=== PATIENT | female | born 1965 | race Caucasian/White ===

== ENCOUNTER 2017-10-07 10:55 | Outpatient (CLI) | payer BC | END 2017-10-07 10:56 | disposition home or self-care (01) | LOC: BICMAMMO 10:55 | PROVIDERS: ATTEND Family Medicine | DX: Z12.31 Encounter for screening mammogram for malignant neoplasm of breast (principal); Z80.3 Family history of malignant neoplasm of breast | CPT/HCPCS: 77063; 77067 ==

== ENCOUNTER 2017-11-04 16:05 | Outpatient (CLI) | payer BC | END 2017-11-04 16:06 | disposition home or self-care (01) | LOC: BICULT 16:05 | PROVIDERS: ATTEND Family Medicine | DX: N63.10 Unspecified lump in the right breast, unspecified quadrant (principal) ==

== ENCOUNTER 2019-02-02 14:04 | Outpatient (CLI) | payer BC ==
--- NOTE | 2019-02-02 14:21 | RAD ---
EXAM: 3 views of the left foot HISTORY: Foot pain COMPARISON: None FINDINGS: 3 views of the left foot shows no evidence of acute fracture or dislocation. No soft tissue swelling is seen. No degenerative changes are present. IMPRESSION: No evidence of acute osseous abnormality.
== END 2019-02-02 14:05 | disposition home or self-care (01) ==
LOC: BICRAD 14:04
PROVIDERS: ATTEND Physician Assistant
DX: M79.672 Pain in left foot (principal)
CPT/HCPCS: 36415; 80053; 80061; 82306; 84443; 85025

== ENCOUNTER 2019-02-19 13:09 | Outpatient (CLI) | payer BC | END 2019-02-19 13:10 | disposition home or self-care (01) | PROVIDERS: ATTEND Physician Assistant | DX: Z72.0 Tobacco use (principal); Z82.49 Family history of ischemic heart disease and other diseases of the circulatory system | CPT/HCPCS: 93017 ==

== ENCOUNTER 2019-02-19 15:01 | Outpatient (CLI) | payer BC ==
--- NOTE | 2019-02-19 16:00 | BD ---
BONE DENSITOMETRY: Date: 02/19/19 HISTORY: 53-year-old female for postmenopausal osteoporosis screening. FINDINGS: Lumbar Spine: BMD (g/cm2) L1 1.067 T-Score: 0.7 L2 1.013 T-Score: -0.1 L3 1.060 T-Score: -0.2 L4 1.002 T-Score: -0.5 Total 1.035 T-Score: -0.1 Left Femoral Neck: 0.639 T-Score: -1.9 Total Femur: 0.933 T-Score: -0.1 IMPRESSION: 1. Bone mineral density of the lumbar spine is within normal range. 2. Bone mineral density of the femoral neck indicates osteopenia. 10 YEAR FRACTURE RISK: Major osteoporotic fracture: 13% Hip fracture: 2.4% POS: [facility]NN[facility]
--- NOTE | 2019-02-19 16:40 | MMO ---
Bilateral MAMMO Bilat Screen [facility]. CLINICAL HISTORY: Patient is 53 years old and is seen for screening. The patient has no personal history of cancer. VIEWS: The views performed were: bilateral craniocaudal with tomosynthesis and bilateral mediolateral oblique with tomosynthesis. FILMS COMPARED: The present examination has been compared to prior imaging studies performed at [facility] on 02/14/2015, 02/24/2015, 02/27/2016 and 10/07/2017. This study has been interpreted with the assistance of computer-aided detection. MAMMOGRAM FINDINGS: The breasts are heterogeneously dense, which could obscure a lesion on mammography. There is a stable intramammary lymph node seen in the right breast. There are no suspicious masses, suspicious calcifications, or new areas of architectural distortion. IMPRESSION: THERE IS NO MAMMOGRAPHIC EVIDENCE OF MALIGNANCY. A ROUTINE FOLLOW-UP MAMMOGRAM IN 1 YEAR IS RECOMMENDED. THE RESULTS OF THIS EXAM WERE SENT TO THE PATIENT. ACR BI-RADS Category 2 - Benign finding MAMMOGRAPHY NOTE: 1. A negative mammogram report should not delay a biopsy if a dominant of clinically suspicious mass is present. 2. Approximately 10% to 15% of breast cancers are not detected by mammography. 3. Adenosis and dense breasts may obscure an underlying neoplasm. Reported by: DAVIN BARTHOLOMEW MD Electonically Signed: [id number]
== END 2019-02-19 15:02 | disposition home or self-care (01) ==
LOC: BICMAMMO 15:01
PROVIDERS: ATTEND Physician Assistant
DX: Z12.31 Encounter for screening mammogram for malignant neoplasm of breast (principal); Z13.820 Encounter for screening for osteoporosis; N95.1 Menopausal and female climacteric states; M85.88 Other specified disorders of bone density and structure, other site
CPT/HCPCS: 77063; 77067; 77080

== ENCOUNTER 2019-04-13 12:14 | Outpatient (CLI) | payer BC ==
--- NOTE | 2019-04-13 14:52 | MRI ---
MRI CERVICAL SPINE NONCONTRAST: 04/13/19 HISTORY: 53-year-old female with ICD-10: M48.0 cervical stenosis of spinal canal. Cervicalgia and bilateral cervical radiculopathy. FINDINGS: Cervical spinal cord is normal in size and signal. Vertebral body heights are maintained. Alignment i s normal. Straightening of the cervical curvature. Mild lateral curvature of the cervical spine or ce rvicothoracic junction. C1-2: No central stenosis. C2-3: No central or high grade neural foraminal stenosis, despite bilateral uncinate process osteophy [place]. Disc space maintained. Mild right facet DJD. Normal left facet joint. C3-4: Disc space maintained. Small bilateral uncinate process osteophytes. Central and bilateral para central shallow disc-osteophytic bar complex encroaches upon the anterior aspect of the spinal canal exacerbating the developmentally small caliber spinal canal, causing mild to moderate central spinal canal stenosis. No right neural foraminal stenosis. Moderate left neural foraminal stenosis. Normal r ight facet joint. Moderate left facet DJD. C4-5: Disc space maintained. Retrolisthesis of C4 on C5. Small bilateral uncinate process osteophytes , left greater than right. Severe right degenerative facet hypertrophy. Somewhat severe right neural foraminal stenosis. Moderate left neural foraminal stenosis. Moderate central spinal canal stenosis. C5-6: ACDF hardware. Successful ankylosis across disc space. No high grade central stenosis. No right neural foraminal stenosis. No high grade facet DJD. No high grade neural foraminal stenosis. Mild le ft neural foraminal stenosis. C6-7: Moderate disc space narrowing. Slight retrolisthesis of C6 on C7. Broad based disc-osteophytic bar complex encroaches upon anterior aspect of the spinal canal. Moderate central spinal canal stenos is. Moderate sized bilateral uncinate process osteophytes cause severe bilateral neural foraminal andrés nosis. Moderate right facet DJD. Mild to moderate left facet DJD. C7-T1: Disc space maintained. Moderate right facet DJD and severe left facet DJD result in minimal an terior translation of C7 on T1. Mild central spinal canal stenosis. Moderate bilateral neural foramin al stenosis, left greater than right. IMPRESSION: 1. Cervical spondylosis, including several levels of bilateral high grade facet osteoarthrosis. 2. Developmentally small caliber spinal canal exacerbated by cervical spondylosis. 3. Several levels of high grade neural foraminal stenosis, worst at C6-7 (bilaterally severe). 4. Status post anterior cervical discectomy and fusion at C5-6. POS: [facility]
== END 2019-04-13 12:15 | disposition home or self-care (01) ==
LOC: BICMRI 12:14
PROVIDERS: ATTEND Anesthesiology Pain Medicine
DX: M48.02 Spinal stenosis, cervical region (principal); M47.812 Spondylosis without myelopathy or radiculopathy, cervical region; Z98.1 Arthrodesis status
CPT/HCPCS: 72141

== ENCOUNTER 2021-12-23 10:38 | Outpatient (CLI) | payer BC | END 2021-12-23 10:39 | disposition home or self-care (01) | LOC: NM 10:38 | PROVIDERS: ATTEND Urology | DX: S37.10XD Unspecified injury of ureter, subsequent encounter (principal); R31.29 Other microscopic hematuria; R35.1 Nocturia; R35.0 Frequency of micturition; R94.4 Abnormal results of kidney function studies | CPT/HCPCS: 78708; A4641; A9562 ==

== ENCOUNTER 2022-02-12 10:00 | Inpatient (IN) | payer BC ==
[2022-02-12 13:40] VITALS: BMI 31.6
[2022-02-15] MEDS ORDERED: Thrombin 5000 UNITS/5 ML VIAL ONE (06:09)
[2022-02-15] MEDS ORDERED: CEFAZOLIN 2 GM VIAL ONE ×2 (06:13→10:43)
[2022-02-15] MEDS ORDERED: Sodium Chloride 0.9% 100 ML ONE ×2 (06:13→10:43)
[2022-02-15] MEDS ORDERED: Fentanyl 250 MCG/5 ML VIAL ONE (06:34)
[2022-02-15] MEDS ORDERED: Famotidine/PF 20 mg/2ml Vial ONE (06:34)
[2022-02-15] MEDS ORDERED: Midazolam HCl 2 mg/2 ml Vial ONE (06:51)
[2022-02-15] MEDS ORDERED: Lidocaine 1% PF 5 ML VIAL ONE (07:03)
[2022-02-15] MEDS ORDERED: PROPOFOL 200 MG/20 ML VIAL ONE (07:03)
[2022-02-15] MEDS ORDERED: Dexamethasone 20 MG/5 ML VIAL ONE (07:03)
[2022-02-15] MEDS ORDERED: Ondansetron PF 4 MG/2 ML Vial ONE (07:03)
[2022-02-15] MEDS ORDERED: Rocuronium Bromide 10 MG/ML (10ML VIAL) ONE (07:03)
[2022-02-15 07:22] LABS: SARS-CoV-2 NAA Rapid Test Not Detected (NotDetected)
[2022-02-15] MEDS ORDERED: SUGAMMADEX SODIUM 200 MG/2 ML VIAL ONE (08:12)
[2022-02-15] MEDS ORDERED: Ondansetron HCl/PF 4 MG/2 ML Vial IVP PRN (08:25)
[2022-02-15] MEDS ORDERED: Morphine Sulfate 2 MG/ML SYRINGE SLOW IVP PRN (08:25)
[2022-02-15] MEDS ORDERED: Promethazine HCl 25 MG/ML VIAL IVPB PRN (08:25)
[2022-02-15] MEDS ORDERED: HYDROmorphone 2 MG/ML VIAL SLOW IVP PRN (08:25)
[2022-02-15] MEDS ORDERED: Promethazine HCl 25 MG/ML VIAL IM PRN (08:25)
[2022-02-15] MEDS ORDERED: PACU-Morphine 4MG/ML VIAL SLOW IVP PRN (08:25)
[2022-02-15] MEDS ORDERED: Fentanyl 100 MCG/2 ML VIAL ONE ×2 (08:52→09:00)
[2022-02-15] MEDS ORDERED: Cyclobenzaprine 10 MG TAB ONE (09:16)
[2022-02-15] MEDS ORDERED: Morphine 4 MG/ML VIAL ONE (10:05)
[2022-02-15] MEDS ORDERED: HYDROcodone/Acetaminophen 5/325 mg Tablet ONE (11:12)
== END 2022-02-15 11:50 | disposition home or self-care (01) | DRG 473 ==
LOC: SURG A 02-15 05:39
PROVIDERS: ADMIT Neurological Surgery; ATTEND Neurological Surgery
PROC: 0RG10A0 Fusion of Cervical Vertebral Joint with Interbody Fusion Device, Anterior Approach, Anterior Column, Open Approach (ICD-10-PCS; principal; 2022-02-15)
PROC: 0RB30ZZ Excision of Cervical Vertebral Disc, Open Approach (ICD-10-PCS; 2022-02-15)
DX: M50.123 Cervical disc disorder at C6-C7 level with radiculopathy (principal); Z20.822 Contact with and (suspected) exposure to COVID-19; M19.90 Unspecified osteoarthritis, unspecified site; Z90.710 Acquired absence of both cervix and uterus; Z88.8 Allergy status to other drugs, medicaments and biological substances
CPT/HCPCS: C1713; C1889; J1100; J2250; J2270; J2405; J2704; J3010; J3490; S0028; U0002

== ENCOUNTER 2022-04-02 11:48 | Outpatient (CLI) | payer BC | END 2022-04-02 11:49 | disposition home or self-care (01) | LOC: BICMAMMO 11:48 | PROVIDERS: ATTEND Family Medicine | DX: Z12.31 Encounter for screening mammogram for malignant neoplasm of breast (principal) | CPT/HCPCS: 77063; 77067 ==

== ENCOUNTER 2022-09-24 11:09 | Outpatient (CLI) | payer BC | END 2022-09-24 11:10 | disposition home or self-care (01) | LOC: RAD 11:09 | PROVIDERS: ATTEND Anesthesiology Pain Medicine | DX: M47.812 Spondylosis without myelopathy or radiculopathy, cervical region (principal); Z98.890 Other specified postprocedural states | CPT/HCPCS: 72052 ==

== ENCOUNTER 2022-10-08 14:05 | Outpatient (CLI) | payer BC | END 2022-10-08 14:06 | disposition home or self-care (01) | LOC: BICMRI 14:05 | PROVIDERS: ATTEND Anesthesiology Pain Medicine | DX: M54.12 Radiculopathy, cervical region (principal) | CPT/HCPCS: 72141 ==

== ENCOUNTER 2024-12-24 06:22 | Inpatient (IN) | payer BC ==
[2024-12-24 07:02] LABS: #Basophils 0.03 10x3/uL (0.0-0.2); #Eosinophils 0.19 10x3/uL (0.0-0.7); #Monocytes 0.42 10x3/uL (0.11-0.59); #Neutrophils 2.63 10x3/uL (1.40-6.50); %Basophils 0.5 % (0.0-1.0); %Eosinophils 3.0 % (0.0-10.0); %Lymphocytes 47.3 % (21.0-51.0); %Monocytes 6.7 % (0.0-10.0); %Neutrophils 42.2 % (42.0-75.0); Hematocrit 42.4 % (36.0-47.0); Hemoglobin 13.7 g/dL (12.0-16.0); Mean Corpuscular Hemoglobin 30.9 pg (27.0-31.0); Mean Corpuscular Volume 95.5 fL (78.0-98.0); Platelet Count 242 10x3/uL (130-400); Red Blood Cell (RBC) Count 4.44 mill/uL (4.20-5.40); White Blood Cell (WBC) Count 6.24 10x3/uL (4.8-10.8)
[2024-12-24 07:35] LABS: ALT (SGPT) 14 U/L (Less than 34); AST (SGOT) 28 U/L (11-34); Albumin 4.3 g/dL (3.1-4.5); Alkaline Phosphatase 54 U/L (40-110); Anion Gap 14 mmol/L (10-20); BUN (Urea Nitrogen) 11 mg/dL (9.8-20.1); Bilirubin, Total 0.4 mg/dL (0.3-1.2); Calc. Creatinine Clearance 0 mL/min (70-130); Calcium 9.8 mg/dL (7.8-10.44); Carbon Dioxide 25 mmol/L (23-31); Chloride 106 mmol/L (98-107); Globulin 2.2 g/dL (2.4-3.5); Glucose 126 mg/dL (80-115); Potassium 3.4 mmol/L (3.5-5.1); Sodium 142 mmol/L (136-145)
[2024-12-24] MEDS ORDERED: Aspirin Chewable 81 MG TAB ONE ×2 (08:55→08:56)
[2024-12-24] MEDS ORDERED: Enoxaparin 80 MG (0.8 mL) SYRINGE ONE (09:05)
[2024-12-24 10:04] VITALS: BMI 29.2
[2024-12-24] MEDS ORDERED: Nitroglycerin 0.4 MG TAB (25 Tab Bottle) SL PRN (10:04)
[2024-12-24] MEDS ORDERED: Senokot S 8.6-50 MG TAB PO PRN (10:04)
[2024-12-24] MEDS ORDERED: Iopamidol 370 76% 100 ML VIAL ONE (10:59)
[2024-12-24] MEDS ORDERED: HYDROcodone/Acetaminophen 10/325 mg Tablet ONE (14:05)
[2024-12-24] MEDS: HYDROcodone/Acetaminophen 10/325 mg Tablet PO PRN (14:07)
[2024-12-24] MEDS ORDERED: Communication Order-Pharmacy FS SCH (15:15)
[2024-12-24] MEDS ORDERED: Adenosine 6 mg (2 mL) VIAL ONE (15:29)
[2024-12-24] MEDS ORDERED: PHENYLEPHRINE-NS 100 MCG/ML 10 ML SYRINGE ONE (15:30)
[2024-12-24] MEDS ORDERED: Heparin 10,000 UNITS/ 10 ML VIAL ONE (15:30)
[2024-12-24] MEDS ORDERED: Nitroglycerin 50 MG/250 ML BOT 250 ML ONE (15:30)
[2024-12-24] MEDS ORDERED: EPINEPHrine 1 MG/10 ML Abboject SYRINGE ONE (15:30)
[2024-12-24] MEDS ORDERED: Lidocaine 1% (PF) 30 ML VIAL ONE (15:33)
[2024-12-24] MEDS ORDERED: TICAGRELOR 90 MG TABLET ONE (17:30)
[2024-12-24] MEDS: Communication Order-Pharmacy FS ONE (20:45)
[2024-12-24] MEDS ORDERED: Enoxaparin 80 MG (0.8 mL) SYRINGE SC SCH (21:00)
[2024-12-24] MEDS: Melatonin 3 MG TAB PO PRN (21:06)
[2024-12-24] MEDS: ALPRAZolam 0.5 MG TAB PO SCH (21:06)
[2024-12-24] MEDS: Acetaminophen 325 MG TAB PO PRN (22:09)
[2024-12-25 01:40] LABS: #Basophils 0.05 10x3/uL (0.0-0.2); #Eosinophils 0.16 10x3/uL (0.0-0.7); #Monocytes 0.60 10x3/uL (0.11-0.59); #Neutrophils 4.36 10x3/uL (1.40-6.50); %Basophils 0.7 % (0.0-1.0); %Eosinophils 2.2 % (0.0-10.0); %Lymphocytes 29.6 % (21.0-51.0); %Monocytes 8.1 % (0.0-10.0); %Neutrophils 58.7 % (42.0-75.0); Hematocrit 38.9 % (36.0-47.0); Hemoglobin 12.7 g/dL (12.0-16.0); Mean Corpuscular Hemoglobin 31.2 pg (27.0-31.0); Mean Corpuscular Volume 95.6 fL (78.0-98.0); Platelet Count 205 10x3/uL (130-400); Red Blood Cell (RBC) Count 4.07 mill/uL (4.20-5.40); White Blood Cell (WBC) Count 7.41 10x3/uL (4.8-10.8)
[2024-12-25] MEDS ORDERED: Albumin 25% 25 GM (100 mL) BOT IVPB SCH (02:00)
[2024-12-25 02:03] LABS: Anion Gap 14 mmol/L (10-20); BUN (Urea Nitrogen) 9 mg/dL (9.8-20.1); Calc. Creatinine Clearance 125 mL/min (70-130); Calcium 9.2 mg/dL (7.8-10.44); Carbon Dioxide 22 mmol/L (23-31); Chloride 108 mmol/L (98-107); Glucose 105 mg/dL (80-115); Magnesium 1.9 mg/dL (1.6-2.6); Potassium 3.7 mmol/L (3.5-5.1); Sodium 140 mmol/L (136-145)
[2024-12-25 06:08] LABS: Cardiac Risk 2.5 (Less than 4.5); Cholesterol 142.0 mg/dl (< 200 Desired); HDL Cholesterol 56.0 mg/dL (>60 Neg Risk); LDL Cholesterol, Calculated 74.0 mg/dL; Triglycerides 60.0 mg/dL (Less than 150)
[2024-12-25] MEDS: Lisinopril 2.5 MG TAB PO SCH (08:45)
[2024-12-25] MEDS: Metoprolol Succinate XL 25 MG ER.TAB PO SCH (08:46)
[2024-12-25] MEDS: Aspirin 81 mg Enteric Coated Tablet PO SCH (08:46)
[2024-12-25] MEDS: TICAGRELOR 90 MG TABLET PO SCH (12:13)
[2024-12-25] MEDS: Dapagliflozin Propanediol 10 MG TAB PO SCH (12:13)
[2024-12-25] MEDS: Methocarbamol 500 MG TAB PO PRN (12:13)
[2024-12-25] MEDS: FLU (Fluarix Triv) 25-26 (6MOS UP)/PF 45 MCG/0.5 ML Syringe IM ONE (13:06)
[2024-12-25 15:23] VITALS: BP 142/70; TEMP 97.9
== END 2024-12-25 17:34 | disposition home or self-care (01) | DRG 322 ==
LOC: ERS 06:22 → ERHOLD 09:29 → OBS 14:52
PROVIDERS: ADMIT Family Medicine; ATTEND Internal Medicine
PROC: 027034Z Dilation of Coronary Artery, One Artery with Drug-eluting Intraluminal Device, Percutaneous Approach (ICD-10-PCS; principal; 2024-12-24)
PROC: 4A023N7 Measurement of Cardiac Sampling and Pressure, Left Heart, Percutaneous Approach (ICD-10-PCS; 2024-12-24)
DX: I21.4 Non-ST elevation (NSTEMI) myocardial infarction (principal); I51.81 Takotsubo syndrome; F17.290 Nicotine dependence, other tobacco product, uncomplicated; I25.10 Atherosclerotic heart disease of native coronary artery without angina pectoris; M54.2 Cervicalgia; G89.4 Chronic pain syndrome; F41.9 Anxiety disorder, unspecified; Z90.710 Acquired absence of both cervix and uterus; Z90.5 Acquired absence of kidney; Z98.890 Other specified postprocedural states; Z88.8 Allergy status to other drugs, medicaments and biological substances; Z79.899 Other long term (current) drug therapy; Z95.1 Presence of aortocoronary bypass graft; I25.2 Old myocardial infarction; Z95.5 Presence of coronary angioplasty implant and graft; Z87.891 Personal history of nicotine dependence
CPT/HCPCS: 36415; 71045; 80053; 80061; 82550; 83605; 83735; 84484; 85025; 85347; 90656; 92941; 93005; 93010; 93306; 93458; 93798; 96372; 99152; 99153; C1769; C1874; C1887; C1894; C9606; J0153; J0165; J0461; J1644; J1650; J2003; J2250; J3010; J7030; Q9967